=== PATIENT | male | born 1995 | race Caucasian/White ===

== ENCOUNTER 2017-04-20 14:25 | Emergency (ER) | payer OTHER ==
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
[~2017-04-20 14:25] MED LIST: ABILIFY5 MG PO; AMOXICILLIN PO; AMOXICILLIN875 MG PO; AMOXIL875 MG PO; CELEXA PO; ELIMITE60 G1 TOP; IBUPROFEN PO; IBUPROFEN400 MG PO; IBUPROFEN800 MG PO; MOTRIN600 M1 PO; NAPROSYN500 MG PO; NAPROXEN PO; NO MEDICATIONS; PHENERGAN W/CO120 ML PO; PHENERGAN25 MG PO; RISPERIDONE PO; TRILEPTAL PO; TYLENOL #3 PO; ZITHROMAX PO
== END 2017-04-20 17:32 | disposition home or self-care (01) ==
LOC: SED 14:25
DX: S51.012A Laceration without foreign body of left elbow, initial encounter (principal); Z23 Encounter for immunization; W22.8XXA Striking against or struck by other objects, initial encounter; Y92.009 Unspecified place in unspecified non-institutional (private) residence as the place of occurrence of the external cause
CPT/HCPCS: 73030; 73080; 90471; 90715; 99284

== ENCOUNTER 2017-06-24 03:15 | Emergency (ER) | payer OTHER ==
[~2017-06-24] VITALS: Ht 170.2 cm; Wt 74.8 kg
== END 2017-06-24 03:44 | disposition left against medical advice (07) ==
LOC: SED 03:15
DX: Z53.21 Procedure and treatment not carried out due to patient leaving prior to being seen by health care provider (principal)